=== PATIENT | female | born 1950 | race Caucasian/White ===

== ENCOUNTER 2016-04-02 09:42 | Outpatient (CLI) | payer MEDICARE ==
--- NOTE | 2016-04-02 10:33 | DIAGNOSTIC IMAGING REPORT ---
PROCEDURE: DEXA BONE DENSITY STUDY CLINICAL INDICATION: SCREENING COMPARISON: None. FINDINGS: LUMBAR SPINE: Bone mineral density 1.063, T-score 0.1, normal LEFT HIP: Bone mineral density 0.847, T-score -0.8, normal LEFT FEMORAL NECK: Bone mineral density 0.763, T-score -0.8, normal (T score greater or equal to -1.0 to: NORMAL) (T score from -1.1 to -2.4: OSTEOPENIA) (T score ess than or equal to -2.5: OSTEOPOROSIS) IMPRESSION: 1. Normal lumbar spine and left hip bone mineral density
--- NOTE | 2016-04-02 17:51 | DIAGNOSTIC IMAGING REPORT ---
PROCEDURE: MG B/L IMPLANTS - SCREENING INDICATION: Screening. Right breast implant. TECHNIQUE: CC and MLO digital views of each breast with CC and MLO digital implant-displacement views of the right breast. The patient returned later in the day for repeat MLO view of the right breast. COMPARISON: Compared to 01/12/2015, 01/03/2014, and 12/30/2012. FINDINGS: Computer-aided detection applied. Right subpectoral implant appears intact. The visualized portions of the breast parenchyma are moderately dense, but unchanged, and within normal limits. IMPRESSION: 1. Negative mammogram. RESULT CODE: 1- Negative. A. A negative report should not delay biopsy if a dominant or clinically suspicious mass is present. 10-15% of cancers are not identified by x-ray. B. A negative report may reinforce clinical impression. C. Adenosis and dense breasts may obscure an underlying neoplasm. D. False positive reports average 6-10%. E.. A yearly screening mammogram is recommended. A reminder letter will be scheduled.
== END 2016-04-02 23:00 ==
LOC: MAM SRH 09:42
DX: Z13.820 Encounter for screening for osteoporosis (principal); Z12.31 Encounter for screening mammogram for malignant neoplasm of breast